=== PATIENT | female | born 1970 | race Caucasian/White ===

== ENCOUNTER 2022-10-02 17:07 | Emergency (ER) | payer BC, MEDICAID ==
[~2022-10-02] VITALS: Ht 170.2 cm; Wt 100.0 kg
[2022-10-02 17:26] VITALS: BP 126/91
== END 2022-10-03 03:49 | disposition left against medical advice (07) ==
LOC: ER 17:08
DX: R19.7 Diarrhea, unspecified (principal); Z53.21 Procedure and treatment not carried out due to patient leaving prior to being seen by health care provider